=== PATIENT | male | born 1970 ===

== ENCOUNTER 2017-03-11 17:33 | Emergency (ER) | payer SELFPAY ==
[~2017-03-11] VITALS: Ht 190.5 cm; Wt 149.7 kg
[2017-03-11 17:39] VITALS: BP 122/78
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
== END 2017-03-11 19:01 | disposition home or self-care (01) ==
LOC: ER 17:39
DX: S52.691A Other fracture of lower end of right ulna, initial encounter for closed fracture (principal); W22.09XA Striking against other stationary object, initial encounter; Y93.29 Activity, other involving ice and snow
CPT/HCPCS: 73090; 99283; A4565